=== PATIENT | female | born 1965 | race Caucasian/White ===

== ENCOUNTER → 2017-03-15 | Outpatient (CLI) | payer BC ==
--- NOTE | 2017-03-15 12:26 | RAD ---
Ultrasound pelvis Indication: Pelvic pain. Right lower quadrant pain for 6 months. Status post hysterectomy 2010. Technique: Grayscale, color Doppler and spectral waveform ultrasound images of the pelvis obtained. Comparison: None Findings: Limited study due to body habitus. Uterus surgically absent. Bilateral ovaries are not visualized. Clinically correlate if patient had oophorectomy. Small amount of free fluid in the cul-de-sac. If concern for pelvic or abdominal pathology is high, please consider CT abdomen/ pelvis or MRI. Impression: As above.
--- NOTE | 2017-03-16 08:46 | RAD ---
DATE: 03/15/2017 EXAM: MAMMO LISA SCREENING BILATERAL HISTORY: Screening. COMPARISON: Previous study from 2016 and 2015 This study was interpreted with the benefit of Computerized Aided Detection (CAD). FINDINGS: Breast density category B: There are scattered areas of fibroglandular density. The skin and nipples are within normal limits. There is a 6 mm round mass in the left breast with obscured margins approximately 3.4 cm from the nipple likely at 1-4:00 position. No suspicious calcifications associated with this mass. This was faintly visualized on previous study from 2016 on lisa views. Stable multiple intraparenchymal lymph nodes in the right breast. IMPRESSION: Left breast nodule as described above most likely overlapping fibroglandular tissue or intraparenchymal lymph node. BI-RADS CATEGORY: 0 INCOMPLETE: NEED ADDITIONAL IMAGING EVALUATION AND/OR PRIOR MAMMOGRAMS FOR COMPARISON RECOMMENDED FOLLOW-UP: ADD ADDITIONAL IMAGING. Spot compression views of the left breast at 1-4:00 position and ultrasound if needed. PQRS compliance statement: Patient information was entered into a reminder system with a target due date 03/14/2017 for the next mammogram. Mammography is a sensitive method for finding small breast cancers, but it does not detect them all and is not a substitute for careful clinical examination. A negative mammogram does not negate a clinically suspicious finding and should not result in delay in biopsying a clinically suspicious abnormality. "Our facility is accredited by the [employer] Mammography [employer]."
== END | disposition home or self-care (01) ==
LOC: US 09:41
PROVIDERS: ATTEND Obstetrics & Gynecology
DX: Z12.31 Encounter for screening mammogram for malignant neoplasm of breast (principal); R10.2 Pelvic and perineal pain; R10.31 Right lower quadrant pain; Z90.49 Acquired absence of other specified parts of digestive tract
CPT/HCPCS: 76830; 76856; G0202; 77067

== ENCOUNTER → 2017-03-30 | Outpatient (CLI) | payer BC ==
--- NOTE | 2017-03-30 14:32 | RAD ---
DATE: 03/30/2017 EXAM: DIGITAL DIAGNOSTIC LT, BREAST LEFT HISTORY: Suspicious screening study COMPARISON: 03/15/2017, 02/18/2016 This study was interpreted with the benefit of Computerized Aided Detection (CAD). The breast parenchyma shows scattered fibroglandular densities. Breast parenchyma level B. FINDINGS: On the screening study a vague opacity was noted laterally on only the cc view. Today's spot compression cc view of this region demonstrates no discrete mass. There are faint patchy fibroglandular shadows in this region. The fibroglandular pattern is similar to that seen on 02/18/2016 study. No mass is identified on today's straight mediolateral view. The appearance on the one view of the screening study was probably a summation shadow. Left breast ultrasound, 02/18/2016: A targeted ultrasound exam of the lateral aspect left breast was performed. No cystic or solid breast mass is evident. IMPRESSION: There is no mammographic evidence of malignancy in the left breast. Routine yearly mammographic follow-up is suggested. BI-RADS CATEGORY: 2 BENIGN FINDING(S) RECOMMENDED FOLLOW-UP: 12M 12 MONTH FOLLOW-UP PQRS compliance statement: Patient information was entered into a reminder system with a target due date for the next mammogram. Mammography is a sensitive method for finding small breast cancers, but it does not detect them all and is not a substitute for careful clinical examination. A negative mammogram does not negate a clinically suspicious finding and should not result in delay in biopsying a clinically suspicious abnormality. "Our facility is accredited by the [employer] Mammography [employer]."
== END | disposition home or self-care (01) ==
LOC: MAMMO 12:59
PROVIDERS: ATTEND Obstetrics & Gynecology
DX: R92.8 Other abnormal and inconclusive findings on diagnostic imaging of breast (principal)
CPT/HCPCS: 76641; G0206; 77065